=== PATIENT | male | born 1975 | race African-American/Black ===

== ENCOUNTER 2021-10-10 01:31 | Day surgery (SDC) | payer OTHER, SELFPAY ==
[2021-09-24 14:03] VITALS: BMI 43.6
--- NOTE | 2021-10-09 15:21 | PM.HPGS ---
History of Present Illness History of Present Illness Consent: Risks, benefits, and alternatives have been discussed and questions answered. Patient agrees to proceed with procedure. Chief complaint: neoplasm screening Narrative: Jay Holcomb is a 46 year old male referred for colon cancer screening Review of Systems Review of Systems: All systems reviewed & are unremarkable except as noted in HPI and below PMFSH Past Medical History Medical History Hyperlipidemia Hypertension Social History Social History Smoking status: Current every day smoker Tobacco type: e-cigarettes/vaping Additional smoking assessment comments: Vaping for 6 years Alcohol intake: current Drinks per week: 24 Substance use: never Living arrangements: alone Spiritual care concerns: No Meds Home Medications and Allergies Home Medications Medication Instructions Recorded Confirmed Type atorvastatin 40 mg PO DAILY 09/24/21 09/24/21 History losartan 50 mg PO DAILY 09/24/21 09/24/21 History metformin 500 mg PO BID 09/24/21 09/24/21 History Allergies Allergy/AdvReac Type Severity Reaction Status Date / Time No Known Allergies Allergy Verified 10/10/21 11:04 Exam Resp: Auscultation: clear to auscultation bilaterally Cardio: Rate: regular rate Rhythm: regular rhythm GI: GI Palp: Yes Soft to palpation and No Tenderness to palpation present (GI) Assessment and Plan Assessment and plan (1) Colon cancer screening: Code(s): Z12.11 - Encounter for screening for malignant neoplasm of colon Status: Acute Assessment and Plan: Colonoscopy with possible biopsy or polypectomy or cautery or injection of substances.
[2021-10-10 11:05] VITALS: BP 178/111; PULSE 108; RESP 20; TEMP 36.9; O2SAT 92
[2021-10-10] MEDS: LACTATED RINGERS 1,000 ML 150 ML IV CONT (11:14)
[2021-10-10 11:17] LABS: Glucose Point of Care 122 mg/dl (65-105)
--- NOTE | 2021-10-10 11:47 | WPDANESEPPF ---
Anes - Initial Pre Proc Eval Procedure: Operation Date: 10/10/21 12:30 Proposed Procedures p Screening Colonoscopy - Donnie Hoover MD Date/Time: 10/10/21 11:47 Surgeon: Donnie Hoover MD Pre Op Diagnosis: neoplasm screening Patient Data Age: 46 Gender: M Height: 1.85 m Weight: 145.6 kg Last Vital Signs Temp 98.4 F 10/10/21 11:05 Pulse 108 H 10/10/21 11:05 Resp 20 10/10/21 11:05 BP 178/111 H 10/10/21 11:05 Pulse Ox 92 10/10/21 11:05 Allergies Allergy/AdvReac Type Severity Reaction Status Date / Time No Known Allergies Allergy Verified 10/10/21 11:04 Home Medications Medication Instructions Recorded Confirmed Type atorvastatin 40 mg PO DAILY 09/24/21 09/24/21 History losartan 50 mg PO DAILY 09/24/21 09/24/21 History metformin 500 mg PO BID 09/24/21 09/24/21 History Laboratory Tests 10/10/21 11:12 POC Capillary Glucose 122 mg/dl H mg/dl (65-105) Patient hx anesthesia problems: none Family hx anesthesia problems: none Results Review: All pre-operative results and documents have been reviewed as part of the pre-operative evaluation. PMFSH Past Medical History Medical History Hyperlipidemia Hypertension Social History Social History Smoking status: Current every day smoker Tobacco type: e-cigarettes/vaping Additional smoking assessment comments: Vaping for 6 years Alcohol intake: current Drinks per week: 24 Substance use: never Living arrangements: alone Spiritual care concerns: No Anes - Eval Final PreProcedure Day of Procedure 10/10/21 11:47 Patient weight: morbidly obese Heart: regular rate and rhythm Lungs: clear to auscultation Airway: Mallampati scale class II Neurological: alert and oriented Last oral intake: >/= 8 hours ASA classification: III Emergent: no Anesthetic plan: proceed Anesthesia type and monitoring: general GIVS and standard monitoring Results Review: All pre-operative results and documents have been reviewed as part of the pre-operative evaluation. Informed Consent: The patient's anesthetic plan and its attendant risks and benefits were discussed with the patient/family/POA. Questions were solicited and answers provided to the satisfaction of the patient/family/POA.
[2021-10-10] MEDS: SIMETHICONE ORAL SUSPENSION 20 MG/0.3 ML 30 ML BOTTLE 0.6 ML IRRIGATION (12:27)
[2021-10-10 12:36] VITALS: BP 150/104; PULSE 100; RESP 26; O2SAT 99
[2021-10-10 12:44] VITALS: BP 148/103; PULSE 98; RESP 23; O2SAT 100
[2021-10-10 12:54] VITALS: BP 144/108; PULSE 91; RESP 19; O2SAT 100
== END 2021-10-10 12:58 | disposition home or self-care (01) ==
PROVIDERS: PCP Internal Medicine Infectious Disease; Visit Provider Internal Medicine Gastroenterology
PROC: 0DJD8ZZ Inspection of Lower Intestinal Tract, Via Natural or Artificial Opening Endoscopic (ICD-10-PCS; CPT 45378; principal; 2021-10-10 12:30)
DX: Z12.11 Encounter for screening for malignant neoplasm of colon (principal); K57.30 Diverticulosis of large intestine without perforation or abscess without bleeding; I10 Essential (primary) hypertension; E78.5 Hyperlipidemia, unspecified; Z79.84 Long term (current) use of oral hypoglycemic drugs; F17.290 Nicotine dependence, other tobacco product, uncomplicated; E66.01 Morbid (severe) obesity due to excess calories; Z68.41 Body mass index [BMI] 40.0-44.9, adult
CPT/HCPCS: 45378; 82948; J2704; J7120